=== PATIENT | male | born 1945 | race Caucasian/White ===

== ENCOUNTER 2018-10-31 11:26 | Inpatient (IN) ==
--- NOTE | 2018-10-23 13:50 | Anesthesiology Consultation ---
Date of Service October 23, 2018 Assessment & Plan (1) Encounter for pre-operative examination: Chart Review Chart Review: Acceptable Risk for Surgery and Patient seen in Pre Admission Testing Consults Requested medical (Dr. Ayala (10/25)) - Dr. Ayala's Office called and notified of new carotid bruits and will address at appointment on 10/25. - Patient was seen by Dr. Ayala on 10/25 and carotid dopplers were obtained (see above). Note from Dr. Ayala states that "Patient was seen and examined. Reviewed labs and carotid U/S. Patient represents a low risk for post-op complications. Patient is cleared for proposed procedure." Teaching & Discussion Pre-Anesthesia Teaching/Discussion Notes: Instructed NPO after midnight before surgery, except medications with 15 cc of water. Medication instructions provided according to the PAT guidelines. History Surgery Operation Date: 10/31/18 12:25 Proposed Procedures p L3-L5 Decompression and Fusion, Spinal Cord Monitoring - Aidan Etienne, Height/Weight Height: 5 ft 11 in Weight: 119.3 kg Allergies Allergy/AdvReac Type Severity Reaction Status Date / Time adhesive Allergy Unknown Redness of Verified 10/22/18 15:59 Skin iron AdvReac Mild CONSTIPATIO Verified 10/22/18 15:59 N SLING Allergy SEE BELOW Uncoded 10/22/18 15:59 Medications Home Medications Medication Instructions Recorded Confirmed Last Taken hydrochlorothiazide 25 mg PO QAM 03/23/18 10/22/18 04/09/18 08:00 lisinopril 40 mg PO QAM 03/23/18 10/22/18 04/09/18 08:00 nifedipine 30 mg PO QAM 03/23/18 10/22/18 04/10/18 07:15 sildenafil 100 mg PO DAILY PRN 03/23/18 10/22/18 04/07/18 18:00 Past Medical History Medical History Cardiac murmur (Inactive) Hypertension Osteoarthritis Exercise / Class Metabolic Activity II 4-5 Yardwork/Stairs/Walk up hill (Keeps busy tending to yard, etc. Able to climb FOS. Denies CP or SOB. ) Past Surgical History Surgical History History of bronchoscopy 2000 History of carpal tunnel release bl History of colonoscopy X2 History of thoracotomy 2000 - r/t questionable lung mass per CT - no mass present - scar tissue only History of total knee replacement bl LEFT - 10/09/13 - MAC #3, ETT #7.5, Grade 1 View RIGHT - 04/10/18 - MAC #3, ETT #7.5, Grade 1 View History of total shoulder replacement bl History of vitrectomy Past Anesthesia History No Hx of Anesthesia Complications and No Family Hx of Anesthesia Complications History of PONV No Hx of PONV and No Hx of Motion Sickness Social History Smoking Status: Former smoker tobacco type: cigarettes Smoking cigarettes per day: 1ppd x ~30 years Do You Dip or Chew Tobacco: No (Quit 2-3 years ago. ) Smoking End Date: quit 30 years ago Hx Alcohol Use: No Hx Substance Use: No substance use type: does not use Review of Systems Patient denies chest pain, shortness of breath, dyspnea on exertion, reflux, cough, wheezing, palpitations. +Joint Pain (Back, Shoulder) Physical Exam Vital Signs BP: 125/87 P: 63 R: 16 T: 97.5 SPO2: 96% on RA Constitutional + obese ENMT Mouth: + dentures (Full set upper dentures, Partial set on bottom) Thyromental Distance: > or= 3.5 Finger Breadths (4) Mallampati Class: II Neck normal visual inspection and trachea midline; neck extension not limited Respiratory normal respiratory effort Auscultation: lungs clear to auscultation bilaterally Cardiovascular Rate/Rhythm: regular rate and regular rhythm Heart Sounds: no murmur Vessels: + carotid bruit (Bilateral) Neurologic moves all extremities Psychiatric Orientation: alert and oriented x 3 Testing Laboratory Results 10/23/18 14:24 10/23/18 14:24 10/23/18 10/23/18 10/23/18 14:24 14:24 14:24 PT 10.4 INR 1.0 APTT 25.7 Urine Color Yellow Urine Appearance Clear Urine pH 7.0 Ur Specific [place] 1.012 Urine Protein Negative Urine Glucose (UA) Negative Urine Ketones Negative Urine Nitrite Negative Ur Leukocyte Esterase Negative Blood Type O Positive Antibody Screen NEGATIVE Electrocardiogram Date: 03/07/18 Findings: + NSR @ (73) Chest X-Ray Date: 03/30/18 Findings: + NAD FINDINGS: The cardiac and mediastinal contours are normal. There is no evidence of focal pulmonary consolidation. There is no evidence of failure. No pleural effusions are visualized.[ There is stable bibasilar linear atelectasis/scarring. Postsurgical changes involve the left shoulder. There is increased markings within the right midlung zone, likely represents area of postinflammatory scarring this remains unchanged from 2008. IMPRESSION: Stable areas of interstitial scarring/atelectasis. No active disease in the chest. Other Testing Carotid Doppler U/S 10/25/18 FINDINGS: Duplex and color doppler evaluation of the arteries in the neck demonstrates no evidence of plaque. There is no significant velocity elevation, filling defect, or occlusive disease noted. The vertebral arteries are patent and ategrade bilaterally. IMPRESSION: Normal carotid doppler ultrasound
--- NOTE | 2018-10-23 13:58 | PAT Medication Instructions ---
Medication Instructions Date of Service October 23, 2018 Home Medications hydrochlorothiazide 25 mg PO QAM lisinopril 40 mg PO QAM nifedipine 30 mg PO QAM sildenafil 100 mg PO DAILY NEEDED DO NOT take the morning of surgery hydrochlorothiazide 25 mg PO QAM lisinopril 40 mg PO QAM sildenafil 100 mg PO DAILY NEEDED Take morning of surgery With a small sip of water, OTHERWISE NOTHING TO EAT OR DRINK AFTER MIDNIGHT: nifedipine 30 mg PO QAM Other Notes If you have any questions please call us at [phone] or [phone] or [phone] or [phone]
[2018-10-23 15:11] LABS: Basophils # (auto) 0.03 K/uL (0-0.2); Basophils % (auto) 0.4 %; Eosinophils # (auto) 0.16 K/uL (0-0.5); Eosinophils % (auto) 2.3 %; Hematocrit (blood only) 46.3 % (42-52); Hemoglobin 16.5 g/dL (14.0-18.0); Immature Granulocytes # (auto) 0.01 K/uL (0.00-0.02); Immature Granulocytes % (auto) 0.1 %; Lymphocytes # (auto) 1.99 K/uL (1.2-3.4); Lymphocytes % (auto) 28.2 %; Mean Corpuscular Hgb Conc 35.6 g/dL (32-36); Mean Corpuscular Volume 89.7 fL (80-100); Mean Platelet Volume 11.4 fL (7.4-10.4); Monocytes # (auto) 0.76 K/uL (0.11-0.59); Monocytes % (auto) 10.8 %; Neutrophils # (auto) 4.11 K/uL (1.4-6.5); Neutrophils % (auto) 58.2 %; Platelet Count 207 K/uL (130-400); RDW Coefficient of Variation 13.2 % (11.5-14.5); RDW Standard Deviation 43.6 fL (36.4-46.3); Red Blood Count 5.16 M/uL (4.7-6.1); White Blood Count 7.06 K/uL (4.8-10.8)
[2018-10-23 15:16] LABS: Appearance Urine Clear (Clear); Bilirubin Urine Negative (Negative); Blood Urine Negative (Negative); Color Urine Yellow; Glucose Urine UA Negative (Negative); Ketones Urine Negative (Negative); Leukocyte Esterase Urine Negative (Negative); Nitrite Urine Negative (Negative); Protein Urine Negative (Negative); Specific Gravity Urine 1.012 (1.000-1.030); Urobilinogen Urine Negative (Negative)
[2018-10-23 15:20] LABS: BUN Creatinine Ratio 20.9 (10-20); Calcium 9.2 mg/dl (8.5-10.1); Creatinine Clr Calc Pharmacy 89.1 ml/min; Est GFR (African American) 89.4; Est GFR (Non-African American) 77.1
[2018-10-23 15:26] LABS: Partial Thromboplastin Ratio 0.9; Partial Thromboplastin Time 25.7 Seconds (21.0-31.0); Prothrombin Time 10.4 Seconds (9.0-12.0)
[~2018-10-31 11:26] MED LIST: ACETAMINOPHEN 500 MG TAB PO SCH; CEFAZOLIN 2000MG 2,000 MG/15 ML SYR IV SCH; CeleBREX 200 MG CAP PO SCH; GABAPENTIN 300 MG PO SCH; LR 15ML/HR IV SCH
[2018-10-31] MEDS ORDERED: HYDROmorphone INJ 2 MG/ML SYR/VIAL ONE (12:27)
[2018-10-31] MEDS ORDERED: fentaNYL citrate 100 MCG/2 ML VIAL ONE ×3 (12:27→14:49)
[2018-10-31] MEDS ORDERED: MIDAZOLAM HCL 1 MG/ML 2ML VIAL ONE (12:27)
--- NOTE | 2018-10-31 12:42 | History & Physical Bridge Note ---
Date of Service October 31, 2018 History & Physical Bridge Note I have examined the patient, reviewed the History & Physical and in the interval since the performance of the History & Physical I have noted the following changes of clinical significance: no changes noted
--- NOTE | 2018-10-31 12:44 | History & Physical Report ---
Date of Service October 31, 2018 Assessment & Plan (1) Spinal stenosis, lumbar region with neurogenic claudication: L3-L5 decompression and fusion Present on Admission?: Yes History of Present Illness Chief Complaint: Back and bilateral leg pain Primary Care Provider: Rafael Ayala This is a 73-year-old male that presents with chronic persistent back and bilateral leg pain. After failing extensive course of nonoperative care is here for surgical intervention. Allergies Allergy/AdvReac Type Severity Reaction Status Date / Time adhesive Allergy Unknown Redness of Verified 10/31/18 11:49 Skin iron AdvReac Mild CONSTIPATIO Verified 10/31/18 11:49 N SLING Allergy Mild SEE BELOW Uncoded 10/31/18 11:53 Home Medications Home Medications Medication Instructions Recorded Confirmed Type hydrochlorothiazide 25 mg PO QAM 03/23/18 10/31/18 History lisinopril 40 mg PO QAM 03/23/18 10/31/18 History nifedipine 30 mg PO QAM 03/23/18 10/31/18 History sildenafil 100 mg PO DAILY PRN 03/23/18 10/31/18 History Past Med/Surg History Social History Preferred Language: Portuguese Communication Ability: Effective Visual Impairment: No Limitations Machine Operator Required: No Beliefs That Will Affect Care: None marital status: Current Living Situation: Spouse Other Information That Helps Us Care for You: No Feels Safe at Home: Yes Safety Concerns: Feels Safe At This Time Smoking Status: Former smoker Tobacco Type: cigarettes Cigarettes Per Day: 1ppd x ~30 years Do You Dip or Chew Tobacco: No (Quit 2-3 years ago. ) Smoking End Date: quit 30 years ago Second Hand Exposure: No Tobacco Cessation Education Requested by Patient: No Hx Alcohol Use: No Hx Substance Use: No Physical Exam Physical Exam: Patient is alert and oriented neurologically intact. Results & Data Vital Signs (Past 12 Hours) Vital Signs Temp Pulse Resp BP Pulse Ox 10/31/18 11:56 36.4 C L 75 20 154/105 H 96
[2018-10-31] MEDS ORDERED: BACITRACIN INJ 50,000 UNIT VIAL ONE (12:58)
[2018-10-31] MEDS ORDERED: BUPIVACAINE/EPINEPHRINE 0.5% MPF 1:200,000 30 ML VIAL ONE (12:58)
[2018-10-31] MEDS ORDERED: CEFAZOLIN 250 MG/ML 1 GM VIAL ONE (13:15)
[2018-10-31] MEDS ORDERED: ONDANSETRON INJ 2 MG/ML 2 ML VIAL ONE ×2 (13:50→14:54)
[2018-10-31] MEDS ORDERED: LIDOCAINE HCL 2% 2 ML VIAL/AMP(20MG/ML) INFIL ONE (13:51)
[2018-10-31] MEDS ORDERED: ROCURONIUM BROMIDE 10 MG/ML 5 ML VIAL ONE (13:51)
[2018-10-31] MEDS ORDERED: NEOSTIGMINE METHYLSULFATE 1 MG/ML 10ML VIAL ONE (13:51)
[2018-10-31] MEDS ORDERED: METOCLOPRAMIDE HCL INJ 5 MG/ML 2 ML VIAL ONE (13:51)
[2018-10-31] MEDS ORDERED: DEXAMETHASONE SOD INJ 4 MG/ML VIAL ONE (13:51)
[2018-10-31] MEDS ORDERED: GLYCOPYRROLATE 0.2 MG/ML VIAL ONE (13:51)
[2018-10-31] MEDS ORDERED: PROPOFOL IV EMULSION 10 MG/ML 20 ML VIAL IV ONE (13:51)
[2018-10-31] MEDS ORDERED: ePHEDrine sulfate 50 MG/ML SYR ONE (13:51)
[2018-10-31] MEDS ORDERED: FLOSEAL HEMOSTATIC MATRIX 10ML TOP ONE (15:40)
--- NOTE | 2018-10-31 15:47 | Operative Report ---
Post Operative Report Pre & Post Diagnosis Operation Date: 10/31/18 13:05 Pre-Op Diagnosis: Lumbar Spinal Stenosis with Neurogenic Claudication Obesity Post-Op Diagnosis: Same Procedure Operation Date: 10/31/18 13:05 Actual Procedures #1 lumbar decompression with bilateral medial facetectomies and foraminotomies L2-3 L3-4 L4-5 per #2 posterior spinal fusion L3-4 L4-5 per #3 placement posterior instrumentation L3-4 L4-5 per #4 interbody fusion L3-4 L4-5 per #5 placement of titanium 13 x 26 mm cage L3-4 and 15 x 26 mm cage L4-5 per #6 placement of local autograft in the posterior lateral gutters. #7 placement infuse collagen sponge, mass graft in the posterior lateral gutters and ostial amp in the interbody space. Surgeon Aidan Etienne, DO Tax Associate Attorney Poonam Bartlett Estimated Blood Loss 400 Findings See Below Patient is 5 foot 11 inches tall and 115.4 kg with a BMI of 35.5. The patient's body habitus created significant technical difficulty throughout the procedure. He required her deepest retractors and longus instruments in order to perform his surgery. This created at least 50% increase in operative time. Specimens None Indications This is a 73-year-old male who presents with significant back and bilateral leg pain. After failing extensive course of nonoperative care he is elected to undergo the above-mentioned procedure. Description of Procedure Patient was met with identified and informed consent obtained. Patient was then taken to the operative suite underwent intubation placed in a prone position the Mando table on top of the Fortunato frame. All bony prominences well-padded eyes inspected to ensure no external pressure placed upon the peer at this point the lumbar spine was prepped and draped in a normal sterile fashion. Sharp dissection with the assistance of Bovie cautery was performed down to and exposing the lamina and transverse processes of L3-L4-L5 bilaterally. From a caudal cephalad fashion complete laminectomy of L4 L3 and partial laminectomy of L2 was performed including bilateral medial facetectomies and foraminotomies addressing severe stenosis. Pedicle screws were then placed in L3 L4-5 bilaterally with assistance of fluoroscopy and the probably size campos placed. By way of a transforaminal approach on the right complete discectomy of L4-5 was performed in plate graded to subcortical mean bone and a 15 x 26 mm titanium cage filled with osteo-amp bone graft tapped in position. Then proceeded to L3- [address] of a transforaminal approach on the right complete discectomy was performed in plate graded to subcortical bleeding bone and a 13 x 26 mm titanium cage filled ostium bone graft tapped in position. Rods and then compressed locked into final position bilaterally. The transverse processes of L3-L4-L5 bur to subcortical bleeding bone. Infuse collagen sponge master graft local autograft placed in the posterior lateral gutters. 15 round CURTIS inserted. Incision was then closed with 1 Vicryl in the fascia 2-0 Vicryl substantially and 4 Monocryl for Fransen closure. Steri-Strip sterile dressing placed. Patient will continue PACU stable condition. Please note Poonam Bartlett present at the entire procedure involved in patient positioning complex portions of the surgery and final skin closure. Lastly spinal cord monitoring was utilized the procedure no changes noted. I attest to the content of the Intraoperative Record and any orders documented therein. Any exceptions are noted below.
--- NOTE | 2018-10-31 15:52 | Fluoroscopy Report ---
FL lumbar spine 2-3V CLINICAL HISTORY: 73 years-old Male presenting with L3-L5 D/F. TECHNIQUE: 2 fluoroscopic image(s) recorded as part of an intraoperative procedure. COMPARISON: MRI from 06/05/2018. FINDINGS/IMPRESSION: There has been interval posterior bilateral transpedicular screw and campos fixation of 3 adjacent level s in the lumbar spine with laminectomy defects and interbody spacers. Normal anatomic alignment. Please see surgical report for further details. Fluoroscopy dosage (mGy): 18.22. Fluoroscopy time: 21.2 seconds. Number or time of high level fluoroscopy (HLF), digital spot, or digital subtraction images: 0. Electronically signed by: Ismael Todd M.D. 10/31/2018 3:51 PM
--- NOTE | 2018-10-31 16:43 | Anesthesiology Progress Note ---
Date of Service October 31, 2018 Anesthesia Post Procedure Vital Signs Vital Signs: Temp Pulse Resp BP Pulse Ox 10/31/18 16:35 73 22 113/64 95 10/31/18 16:25 77 22 126/70 95 10/31/18 16:15 36.2 C L 94 H 18 133/78 95 10/31/18 11:56 36.4 C L 75 20 154/105 H 96 Pain Intensity Back: Pain Intensity: 4 Transfer of Care Handoff Completed per policy Notes Mental Status: alert / awake / arousable and participated in evaluation Patient Amnestic to Procedure: Yes Nausea / Vomiting: adequately controlled Pain: adequately controlled Airway Patency, RR, SpO2: stable & adequate BP & HR: stable & adequate Hydration State: stable & adequate Anesthetic Complications: no major complications apparent and Pt Satisfied with anesthetic care
[2018-10-31] MEDS ORDERED: LORazepam 0.5 MG TAB PO PRN (17:54)
[2018-10-31] MEDS ORDERED: ALUMINUM/MAGNESIUM SUSP 30 ML UDC PO PRN (17:54)
[2018-10-31] MEDS ORDERED: DO NOT ADMINISTER FLU VACCINE PRN (17:54)
[2018-10-31] MEDS ORDERED: DO NOT ADMINISTER PNEUMOCOCCAL VACCINE PRN (17:54)
[2018-10-31] MEDS ORDERED: ACETAMINOPHEN 500 MG TAB PO PRN (17:54)
[2018-10-31] MEDS ORDERED: HYDROmorphone INJ 0.5 MG/0.5 ML SYR IV PRN (17:54)
[2018-10-31] MEDS ORDERED: SOD PHOSPHATE/SOD BIPHOSPHATE ENEMA 132 ML BTL PR PRN (17:54)
[2018-10-31] MEDS ORDERED: ACETAMINOPHEN 1,000 MG/100 ML VIAL IV PRN (17:54)
[2018-10-31] MEDS ORDERED: TRAMADOL HCL 50 MG TABLET PO PRN (17:54)
[2018-10-31] MEDS ORDERED: BISACODYL 10 MG SUPP PR PRN (17:54)
[2018-10-31] MEDS ORDERED: ONDANSETRON INJ 2 MG/ML 2 ML VIAL IV PRN (17:54)
[2018-10-31] MEDS ORDERED: MAGNESIUM HYDROXIDE SUSP 30 ML UDC PO PRN (17:54)
[2018-10-31] MEDS ORDERED: METOCLOPRAMIDE HCL INJ 5 MG/ML 2 ML VIAL IV PRN (17:54)
[2018-10-31] MEDS ORDERED: ONDANSETRON 4 MG TAB PO PRN (17:54)
[2018-10-31] MEDS ORDERED: LORazepam 0.5 MG/1 ML VIAL IV PRN (17:54)
[2018-10-31] MEDS ORDERED: PROMETHAZINE HCL 12.5 MG in SODIUM CHLORIDE 0.9% 50 ML IV PRN (17:54)
[2018-10-31] MEDS ORDERED: OXYCODONE HCL IR 5 MG TAB (IMMEDIATE RELEASE) PO PRN (17:54)
[2018-10-31] MEDS ORDERED: FAMOTIDINE 20 MG TAB PO PRN (17:54)
[2018-10-31] MEDS: LACTATED RINGER'S 1,000 ML IV SCH (18:17)
--- NOTE | 2018-10-31 18:53 | Consultation ---
Date of Consultation October 31, 2018 Assessment & Plan (1) Status post lumbar surgery: Post op day# 0 S/P L2-L5 decompression and fusion by Dr Etienne Post op pain moderately controlled EBL #400ml -pain management per ortho -wound management per ortho -PT/OT as appropriate -DVT prophylaxis per ortho -incentive spirometry -monitor H&H for acute blood loss anemia (2) Hypertension: Stable -Hold lisinopril, HCTZ and reasses in morning -Continue nifedipine DVT Prophylaxis -SCDs per ortho Follows with Dr Ayala for routine care Pt was seen and care coordinated with Dr Ruiz. See addendum Pt will be followed by Dr Jacobson starting on 11/01/18 Thank you for this consultation. We will follow the patient with you during their hospital stay. You can reach a [facility]/12 via pager @ [phone]. Supervising Physician Co-Signing Physician Notes Patient is a 73-year-old male with history of hypertension and other medical was seen and examined postop after having L2-L5 decompression and fusion by Dr. Etienne. Back pain at surgical site is controlled. Denies any chest pain, shortness of breath, dizziness, nausea, abdominal pain. On exam patient is moderately built and nourished, no apparent distress, normocephalic atraumatic, lungs are clear to auscultation, S1-S2, no murmur, abdomen soft nontender, back- surgical site in dressing,+ drain, no pedal edema grossly no focal neurological deficits. Hypertension--blood pressure is stable. Resume home hypertension medications as able. DVT prophylaxis/activity, wound care as per primary team. Monitor for postop anemia. Bowel regimen to prevent constipation. I personally reviewed the record. Patient is interviewed and examined at bedside. Patient's care is coordinated with Renetta Villalobos PA-C. Please refer to the documentation above for details of patient's presentation and for discussion of other issues. History of Present Illness Reason for Consultation: Postop medical management Attending Physician: Aidan Etienne DO History of Present Illness Pt is 73 y/o M with PMH HTN, obesity, and nonmelanoma skin cancer seen in consultation for postop medical management S/P L2-L5 decompression and fusion today by Dr. Etienne. Postop patient reports some mild back pain. Denies any extremity paresthesias or numbness. Has Cunningham catheter in place. Denies passing flatus yet since surgery. Denies fever/chills, diaphoresis, N/V, SALINAS, dizziness, syncope, vision changes, neck pain, CP, SOB, orthopnea, palpitations, cough, sore throat, choking, abdominal pain, extremity edema, rashes, urinary symptoms. Allergies Allergy/AdvReac Type Severity Reaction Status Date / Time adhesive Allergy Unknown Redness of Verified 10/31/18 11:49 Skin iron AdvReac Mild CONSTIPATIO Verified 10/31/18 11:49 N SLING Allergy Mild SEE BELOW Uncoded 10/31/18 11:53 Home Medications Home Medications Medication Instructions Recorded Confirmed Type hydrochlorothiazide 25 mg PO QAM 03/23/18 10/31/18 History lisinopril 40 mg PO QAM 03/23/18 10/31/18 History nifedipine 30 mg PO QAM 03/23/18 10/31/18 History sildenafil 100 mg PO DAILY PRN 03/23/18 10/31/18 History Patient History Medical History Hypertension (Chronic) Osteoarthritis (Chronic) Cardiac murmur (Inactive) Surgical History History of total knee replacement (Chronic) bl LEFT - 10/09/13 - MAC #3, ETT #7.5, Grade 1 View RIGHT - 04/10/18 - MAC #3, ETT #7.5, Grade 1 View History of total shoulder replacement (Chronic) bl History of carpal tunnel release (Chronic) bl History of thoracotomy (Chronic) 2000 - r/t questionable lung mass per CT - no mass present - scar tissue only History of colonoscopy (Chronic) X2 History of vitrectomy (Chronic) History of bronchoscopy (Resolved) 2000 Family History Daughter Family history of reaction to anesthesia slow to wake up Grandfather (Maternal) Family history of diabetes mellitus Grandmother (Maternal) Family history of diabetes mellitus Son Family hx of colon cancer Social History Preferred Language: [place] Communication Ability: Effective Visual Impairment: No Limitations Life Educator Required: No Beliefs That Will Affect Care: None marital status: Current Living Situation: Spouse Other Information That Helps Us Care for You: No Feels Safe at Home: Yes Safety Concerns: Feels Safe At This Time Smoking Status: Former smoker Tobacco Type: cigarettes Cigarettes Per Day: 1ppd x ~30 years Do You Dip or Chew Tobacco: No (Quit 2-3 years ago. ) Smoking End Date: quit 30 years ago Second Hand Exposure: No Tobacco Cessation Education Requested by Patient: No Hx Alcohol Use: No Hx Substance Use: No Review of Systems Review of Systems: All systems reviewed & are unremarkable except as noted in HPI & below Physical Exam Physical Exam: General: no acute distress, obese Head: normocephalic, atraumatic Eyes: conjunctiva non-injected, anicteric ENT: normal inspection external ears, nose, mucous membranes moist Neck: supple, trachea midline, Lungs: clear, no respiratory distress CV: RRR, no pretibial edema Abd: normal BS, soft, non-tender Ext: no calf tenderness, distal pulses intact, sensation to light touch intact bilaterally. Bilateral pedal pushes and pulse intact Neuro: A&O x 3, no focal deficits noted, normal affect Skin: warm, dry Results & Data Vital Signs (Past 12 Hours) Vital Signs Temp Pulse Resp BP Pulse Ox 10/31/18 18:18 37.0 C 17 123/76 94 10/31/18 17:25 67 18 121/76 93 10/31/18 17:15 71 18 123/66 93 10/31/18 17:05 68 18 114/64 94 10/31/18 16:55 70 18 114/62 92 10/31/18 16:45 71 22 113/67 92 10/31/18 16:35 73 22 113/64 95 10/31/18 16:25 77 22 126/70 95 10/31/18 16:15 36.2 C L 94 H 18 133/78 95 10/31/18 11:56 36.4 C L 75 20 154/105 H 96
[2018-10-31] MEDS: KETOROLAC TROMETHAMINE 15 MG/ML VIAL IV SCH (19:19)
[2018-10-31] MEDS: CEFAZOLIN 2000MG 2,000 MG/15 ML SYR IV SCH (20:19)
[2018-10-31] MEDS: DOCUSATE SODIUM/SENNA 50/8.6MG TAB PO SCH (20:19)
[2018-11-01] MEDS: LACTATED RINGER'S 1,000 ML IV SCH (00:02)
[2018-11-01] MEDS: KETOROLAC TROMETHAMINE 15 MG/ML VIAL IV SCH ×3 (00:02→11:52)
[2018-11-01] MEDS: POLYETHYLENE (MIRALAX) 17 GM PACK PO SCH ×3 (05:51→17:48)
[2018-11-01] MEDS: CEFAZOLIN 2000MG 2,000 MG/15 ML SYR IV SCH (05:51)
[2018-11-01] MEDS: NIFEdipine EXTENDED REL 30 MG TABCR PO SCH (07:47)
[2018-11-01 07:52] LABS: Basophils # (auto) 0.01 K/uL (0-0.2); Basophils % (auto) 0.1 %; Hematocrit (blood only) 38.1 % (42-52); Hemoglobin 13.1 g/dL (14.0-18.0); Immature Granulocytes # (auto) 0.04 K/uL (0.00-0.02); Immature Granulocytes % (auto) 0.2 %; Lymphocytes # (auto) 1.08 K/uL (1.2-3.4); Lymphocytes % (auto) 6.4 %; Mean Corpuscular Hgb Conc 34.4 g/dL (32-36); Mean Corpuscular Volume 91.1 fL (80-100); Mean Platelet Volume 11.6 fL (7.4-10.4); Monocytes # (auto) 1.11 K/uL (0.11-0.59); Monocytes % (auto) 6.6 %; Neutrophils # (auto) 14.66 K/uL (1.4-6.5); Neutrophils % (auto) 86.7 %; Platelet Count 181 K/uL (130-400); RDW Coefficient of Variation 13.3 % (11.5-14.5); RDW Standard Deviation 44.3 fL (36.4-46.3); Red Blood Count 4.18 M/uL (4.7-6.1)
--- NOTE | 2018-11-01 08:16 | Orthopedic Progress Note ---
Date of Service November 01, 2018 Assessment & Plan (1) Spinal stenosis, lumbar region with neurogenic claudication: This time will initiate physical therapy monitor his CURTIS output anticipate discharge home Monday. Present on Admission?: Yes Subjective Back pain is controlled leg symptoms improved. Physical Exam Physical Exam: Patient appears comfortable. Is excellent strength testing. Results & Data Vital Signs (Past 12 Hours) Vital Signs Temp Pulse Resp BP Pulse Ox 11/01/18 07:52 36.7 C 80 16 120/67 95 11/01/18 03:20 36.6 C 75 16 127/77 91 10/31/18 23:01 36.6 C 75 16 128/73 92 10/31/18 20:32 36.4 C L 84 17 133/81 94
[2018-11-01 08:20] LABS: BUN Creatinine Ratio 24.7 (10-20); Calcium 8.4 mg/dl (8.5-10.1); Creatinine Clr Calc Pharmacy 64.9 ml/min; Est GFR (African American) 62.2; Est GFR (Non-African American) 53.6
[2018-11-01] MEDS ORDERED: hydroCHLOROthiazide 25 MG TAB PO SCH (09:00)
[2018-11-01] MEDS ORDERED: LISINOPRIL 40 MG TAB PO SCH (09:00)
--- NOTE | 2018-11-01 12:07 | Hospitalist Progress Note ---
Date of Service November 01, 2018 Assessment & Plan (1) Status post lumbar surgery: Post op day#1 S/P L2-L5 decompression and fusion by Dr Etienne Post op pain well-controlled Continue monitoring CURTIS drain output (560 ml to date) -pain management per ortho -wound management per ortho -continue PT/OT -DVT prophylaxis per ortho -incentive spirometry -Hgb stable at 13.1 (pre-op 16.5) (2) Hypertension: Euvolemic, normotensive. Plan to resume HCTZ and lisinopril tomorrow -Continue nifedipine DVT Prophylaxis -SCDs per ortho Follows with Dr Ayala for routine care Patient seen in collaboration with Dr. Jacobson. Please see addendum. Thank you for this consultation. We will follow the patient with you during their hospital stay. You can reach a [facility]/12 via pager @ [phone]. Supervising Physician Co-Signing Physician Notes Attending addendum: 73-year-old male status post lumbar decompression surgery, recovering well pos top Continue management as per orthopedics History of hypertension: Resume outpatient antihypertensives medication as soon as possible Please refer to further documentation by Mela Mabry PA-C for discussion of other chronic issues Selena Jacobson MD Subjective Patient seen and examined while in bedside chair. Feels well today and was able to participate in therapy ambulating in the halls and stairway with walker. Denies any surgical site pain or numbness in lower extremities. Tolerating food well, no nausea or vomiting. + Flatus but no BM yet. Denies fever, chills, lightheadedness, headache, chest pain, shortness of breath, abdominal pain, dysuria or lower extremity swelling. Just had Cunningham catheter removed but has not urinated yet. Review of Systems Review of Systems: At least ten systems reviewed and negative except as noted in the HPI. Physical Exam Physical Exam: General Appearance: WD/WN, no apparent distress, sitting in bedside chair Head: normocephalic, atraumatic Eyes: normal inspection, PERRL, EOMI ENT: hearing grossly normal, pharynx normal (moist mucous membranes) Neck: supple, no JVD, no adenopathy Respiratory/Chest: lungs clear to auscultation. No wheezes, rales or rhonci. No respiratory distress or accessory muscle use Cardiovascular: regular rate, rhythm, no murmur, normal peripheral pulses Abdomen/GI: normal bowel sounds, soft, non-tender to palpation Extremities/Musculoskelatal: Lumbosacral dressing clean, dry, intact. CURTIS drain visualized. No calf tenderness, normal capillary refill, no pedal edema Neurologic/Psych: alert, normal mood/affect, oriented x 3 Skin: normal color, warm/dry Results & Data Vital Signs (Past 12 Hours) Vital Signs Temp Pulse Resp BP Pulse Ox 11/01/18 07:52 36.7 C 80 16 120/67 95 11/01/18 03:20 36.6 C 75 16 127/77 91 Laboratory Results Short CBC 11/01/18 Range/Units 07:36 WBC 16.90 H (4.8-10.8) K/uL Hgb 13.1 L (14.0-18.0) g/dL Hct 38.1 L (42-52) % Plt Count 181 (130-400) K/uL BMP 11/01/18 07:36 Sodium 140 Potassium 4.0 Chloride 105 Carbon Dioxide 25 BUN 32 H Creatinine 1.31 Glucose 153 H Calcium 8.4 L
[2018-11-01] MEDS: DOCUSATE SODIUM/SENNA 50/8.6MG TAB PO SCH (21:04)
[2018-11-02 07:21] LABS: Hematocrit (blood only) 36.9 % (42-52); Hemoglobin 12.7 g/dL (14.0-18.0); Mean Corpuscular Hgb Conc 34.4 g/dL (32-36); Mean Corpuscular Volume 91.8 fL (80-100); Mean Platelet Volume 11.2 fL (7.4-10.4); Platelet Count 150 K/uL (130-400); RDW Coefficient of Variation 13.5 % (11.5-14.5); RDW Standard Deviation 45.4 fL (36.4-46.3); Red Blood Count 4.02 M/uL (4.7-6.1); White Blood Count 11.13 K/uL (4.8-10.8)
[2018-11-02] MEDS: NIFEdipine EXTENDED REL 30 MG TABCR PO SCH (07:43)
[2018-11-02 07:53] LABS: BUN Creatinine Ratio 28.6 (10-20); Creatinine Clr Calc Pharmacy 89.5 ml/min; Est GFR (African American) 91.7; Est GFR (Non-African American) 79.1; Potassium 3.7 mmol/L (3.5-5.1)
--- NOTE | 2018-11-02 09:50 | Hospitalist Progress Note ---
Date of Service November 02, 2018 Assessment & Plan (1) Status post lumbar surgery: - POD#2, s/p L2-L5 decompression and fusion by Dr. Etienne - activity and wound care orders as per ortho - pain control with bowel regimen - PT/OT - monitor H/H for acute blood loss anemia and transfuse blood products PRN - hgb stable 16 ->13 -> 12.7 (2) Hypertension: - BP controlled - HCTZ and lisinopril resumed today, continue nifedipine (3) DVT prophylaxis: - TEDs/SCDs as per ortho Supervising Physician Co-Signing Physician Notes Attending addendum: Patient seen walking on the hallway, using rolling walker with physical therapy no complaint of dyspnea on exertion shortness of breath dizzy spell or lightheadedness Recovering well postoperatively Remained stable medically Still have significant drainage at the CURTIS drain site H&H remained stable Patient remains stable medically, continue to follow Discharge planning as per primary team/spinal orthopedics Please refer to further documentation by Grace Grey PA-C for discussion of other chronic issues Selena Jacobson MD Subjective Patient seen and examined. Sitting up in the chair, doing well. Reports pain is well controlled. Offers no complaints. Denies chest pain and shortness of breath. Had BM this morning. Physical Exam Constitutional: WD/WN, vitals as above no acute distress Respiratory: normal respiratory effort, lungs clear to auscultation Cardiovascular: Rate/Rhythm: regular rate and regular rhythm Vessels: normal peripheral pulses Extremities: no edema Gastrointestinal (Abdomen): Inspection/Auscultation: normal bowel sounds Percussion/Palpation: abdomen soft; abdomen nontender Musculoskeletal: s/p back surgery, dressing dry and intact, CURTIS in place draining bloody drainage, strength strong and equal BLLE Psychiatric: Orientation: alert and oriented x 3 Results & Data Vital Signs (Past 12 Hours) Vital Signs Temp Pulse Resp BP Pulse Ox 11/02/18 07:32 36.7 C 79 18 135/70 90 11/01/18 23:27 36.8 C 69 18 127/69 93 Laboratory Results Short CBC 11/02/18 Range/Units 06:54 WBC 11.13 H (4.8-10.8) K/uL Hgb 12.7 L (14.0-18.0) g/dL Hct 36.9 L (42-52) % Plt Count 150 (130-400) K/uL BMP 11/02/18 06:54 Sodium 140 Potassium 3.7 Chloride 107 Carbon Dioxide 27 BUN 27 H Creatinine 0.95 D Glucose 131 H Calcium 8.0 L
--- NOTE | 2018-11-02 14:09 | Discharge Summary ---
Date of Service November 02, 2018 Admission HPI Per Admitting Provider This is a 73-year-old male that presents with chronic persistent back and bilateral leg pain. After failing extensive course of nonoperative care is here for surgical intervention. Principal Diagnosis Lumbar spinal stenosis with neurogenic claudication Discharge Data Allergies Allergy/AdvReac Type Severity Reaction Status Date / Time adhesive Allergy Unknown Redness of Verified 10/31/18 11:49 Skin iron AdvReac Mild CONSTIPATIO Verified 10/31/18 11:49 N SLING Allergy Mild SEE BELOW Uncoded 10/31/18 11:53 Consultations 10/31/18 17:54 Consult Case Management - Discharge Planning Routine Consult Hospitalist Routine Procedures Performed Operation Date: 10/31/18 13:05 Actual Procedures p L3-L5 Decompression and Fusion, Spinal Cord Monitoring(Not Applicable) - Aidan Etienne DO Ordered Studies 10/31/18 13:05 FL fluoroscopy <1hr Routine FL lumbar spine 2-3V Routine Hospital Course (1) Spinal stenosis, lumbar region with neurogenic claudication: Patient underwent lumbar decompression fusion tolerated as well as taken to orthopedic for postoperative. Postop day 1 is up and ambulating nicely progressed to postop day #2. CURTIS drain decreasing appropriately. Pain well controlled. Subsequently discharged home. Discharge orders and instructions found in the chart for further review. Total Time Total Time Spent Total Time Spent (In Minutes): 20 minutes Discharge Plan Discharge Items Patient Disposition: Home - Self-Care Reason For Visit: LUMBAR SPINAL STENOSIS W/NEUROGENIC CLAUDICATION Discharge Diagnosis: Lumbar spinal stenosis with neurogenic claudication Discharge Goals: Decrease discomfort Activity: Per 'Additional Instructions' section Non-emergency contact: Primary Care Provider Call non-emergency contact if: you have any medication questions Follow-up/Referrals: Rafael Ayala [Primary Care Provider] - Diet: Regular Addtl Provider Instructions: ACTIVITY RECOMMENDATIONS: SELF CARE INSTRUCTIONS AFTER THORACIC/LUMBAR FUSIONS 1. You may walk to your tolerance. It is good exercise for your legs and back. Expect some back and intermittent leg aches and pains. 2. You may perform "counter-top" level activities (make a sandwich, jevon with a project, etc.). 3. No bending or lifting of more than 10 pounds or back twisting of any nature (roll like a log when turning in bed). 4. You may ride in a car for 20-30 minutes at a time. No driving until after your first visit with your doctor. 5. Frequent changes of position and restricting sitting to 30 minutes at a time will help limit the amount of back spasms and stiffness you may experience. 6. You may discontinue the use of ambulatory aids (cane, crutches, etc.) once your strength and confidence allow. 7. You may sort line the shower and let water strike your incision when you arrive home at least once daily. Do not take a tub bath, sit in a hot tub or go into a swimming pool until after your first recheck in the office. SPECIAL CARE INSTRUCTIONS: VERY IMPORTANT TO READ AND REVIEW A. Your surgical incision has been closed with a cosmetic suture under the skin that will dissolve in about 6 weeks. In 14 days, you can use a pair of clean scissors and cut the suture that is left outside of the skin at the ends of your incision. 1. The small skin tapes can be removed 7 days after surgery if they have not fallen off by that point. 2. You may keep the wound open to air as much as possible to promote healing after post-op day number 5 unless told otherwise by your doctor. 3. If you think the wound looks like it is becoming infected (redness or worsening drainage) and/or you are experiencing fever, chill or worsening back pain and muscle spasms, contact the office so that we may evaluate you as soon as possible. B. Complications are uncommon, but please contact us if you have any signs or symptoms of: 1. wound infection (fever higher than 102.5 degrees F, redness, separation of wound, drainage, or increasing pain from the incision) 2. blood clots in legs (pain, swelling, redness and warmth in legs) 3. urinary tract infection (fever higher than 102.5 degrees F, burning upon urination or increased frequency of urination) 4. nerve problems (inability to walk on your toes or heels, numbness, loss of bowel or bladder control) 5. any other symptoms that concern you C. Please call the office at if you have any concerns or questions about your operation or recovery. D. No smoking! Smoking drastically decreases the chance of a solid fusion. E. Do not take any anti-inflammatory medications (Indocin, Advil, Motrin, Aspirin, Naprosyn, etc.) as these may inhibit the chance of a solid fusion. Tylenol is okay to take for pain. MANAGING PAIN AFTER SPINAL SURGERY 1. Narcotic medication is intended for short-term use and will be provided for surgical pain. Surgical pain usually lasts for a period of 4-6 weeks. Narcotic medication includes Percocet, Vicodin, Darvocet, Tylenol #3 or Lortab. 2. Longer-term pain is more appropriately treated with non-narcotic medication such as Tylenol ES. 3. Muscle spasm is not appropriately treated with narcotics. Muscle relaxers such as Soma, Flexeril or Skelaxin can be used along with Tylenol ES. 4. Remember that we all live with some "aches and pains". This is not unusual or uncommon after an injury or as we get older. a. Back pain is expected and may include muscle spasms for 4 to 6 weeks after surgery. The pain should gradually improve. If the pain worsens for no apparent reason, please contact the office. b. Intermittent leg pain may also be experienced and should not be concerned about unless it worsens for no apparent reason. If so, please contact the office. 5. We will provide appropriate medication within the normal guidelines of their prescribed use. We will also be very cautious and aware of potential abuse and extended duration of patients' medication needs. a. Pain medications are for your comfort and to assist with sleep and rest so that the tissue can heal. They are not provided in order to return to normal activity and should not be used through the day. To do so or worsening pain at night can result from ongoing tissue damage and development of tolerance to the prescribed medicine. 6. Please allow 2-3 days to process refills. Prescriptions will not be mailed but must be picked up at the office. FOLLOW UP VISIT: Keep your scheduled follow-up appointment. Any questions, please call the office at . Prescriptions: New tramadol 50 mg Tablet 50 mg PO Q4H PRN (Reason: Pain, Moderate) Qty: 30 RF: 0 oxycodone 5 mg Tablet 5 mg PO Q4H PRN (Reason: Pain, Severe) Qty: 30 RF: 0 Continued nifedipine 30 mg Tablet Extended Release 30 mg PO QAM RF: 0 sildenafil 100 mg Tablet 100 mg PO DAILY PRN (Reason: PRN) RF: 0 hydrochlorothiazide 25 mg Tablet 25 mg PO QAM RF: 0 lisinopril 40 mg Tablet 40 mg PO QAM RF: 0 Stand-Alone Forms: [facility], [facility] Discharge Orders: Discharge Order (Routine); Ordered 11/02/18 Ordered By: Aidan Etienne Admission Data Admit Date/Time: 10/31/18 15:50 Attending Provider: Aidan Etienne Admit Provider: Aidan Etienne Primary Care Provider: Rafael Ayala Other Providers: Cassius Wheeler ; Selena Jacobson Service: Surgical Services Other Interventions: Discharge Summary Assessment (RN) Last Done: 11/02/18 12:05 DC Date/Time DO NOT enter until pt leaves facility: 11/02/18 13:45
== END 2018-11-02 13:45 | disposition home or self-care (01) | DRG 455 ==
LOC: ASU 11:26 → 3W 15:50